=== PATIENT | male | born 1985 | race Caucasian/White ===

== ENCOUNTER 2017-09-15 11:20 | Emergency (ER) | payer OTHER ==
--- NOTE | 2017-09-15 12:06 | CR ---
EXAMINATION: Left hand HISTORY: Crush injury COMPARISON: None TECHNIQUE: 3 views FINDINGS/IMPRESSION: There is a nondisplaced fracture through the middle aspect of the mid fourth pha lanx. The remaining osseous structures and joint spaces are preserved. Mild soft tissue swelling over lying the fourth PIP joint.
--- NOTE | 2017-09-15 12:19 | EDM.PDOC ---
ED HPI GENERAL MEDICAL PROBLEM - General Chief Complaint: Upper Extremity Injury/Pain Stated Complaint: RT HAND RING FINGER Time Seen by Provider: 09/15/17 11:34 Source of Information: Reports: Patient History Limitations: Reports: No Limitations - History of Present Illness INITIAL COMMENTS - FREE TEXT/NARRATIVE: HISTORY AND PHYSICAL: History of present illness: Patient is a 32-year-old male who presents to the emergency room today after a crush injury to the right fourth digit states he was working and smashed it between a Shaker and a pipe, causing pain and swelling. There is no open skin, abrasions or lacerations. Denies any involvement of the other fingers, hand, wrist or forearm. Tdap is up to date Review of systems: As per history of present illness and below otherwise all systems reviewed and negative. Past medical history: As per history of present illness and as reviewed below otherwise noncontributory. Surgical history: As per history of present illness and as reviewed below otherwise noncontributory. Social history: No reported history of drug or alcohol abuse. Family history: As per history of present illness and as reviewed below otherwise noncontributory. Physical exam: General: Well-developed and well-nourished 32-year-old male. Alert and oriented. Nontoxic appearing and in no acute distress. HEENT: Atraumatic, normocephalic, pupils reactive, negative for conjunctival pallor or scleral icterus, mucous membranes moist, throat clear, neck supple, nontender, trachea midline. Lungs: Clear to auscultation, breath sounds equal bilaterally, chest nontender. Heart: S1S2, regular, negative for clicks, rubs, or JVD. Abdomen: Soft, nondistended, nontender. Negative for masses or hepatosplenomegaly. Negative for costovertebral tenderness. Pelvis: Stable nontender. Genitourinary: Deferred. Rectal: Deferred. Extremities/skin: Moves all extremities per self. Has flexion and extension of the right fourth digit. Capillary refill less than 2 seconds of the affected finger. Strong radial pulses bilaterally. Skin is intact with mild soft tissue swelling to the mid finger, 4th digit. Neurovascular unremarkable. Neuro: Awake, alert, oriented. Cranial nerves II through XII unremarkable. Cerebellum unremarkable. Motor and sensory unremarkable throughout. Exam nonfocal. X-ray shows a nondisplaced fracture through the middle aspect of the mid fourth phalanx. A spoon splint that is colleen taped to the adjacent finger is applied. Patient states he goes on days off starting today and lives in [facility]. He will follow up with a surgeon in [place] later this week or early next week. A copy of his radiology image was sent with the patient. Will provide the patient with [place], one tab every 4-6 hours as needed, dispense 30, no refill. We discussed not using this medication when driving or needing to be functioning at work. Patient voices understanding and is agreeable to plan of care. Diagnostics: X-ray Therapeutics: [] Impression: Finger fracture, right 4th digit Plan: 1. You have a non-displaced fracture of the middle aspect of the mid fourth phalanx. Please wear the splint that has been provided for you and "colleen tape it" to the adjacent finger to prevent movement. 2. Please follow-up with a hand surgeon in the next 5-7 days. A copy of your radiology image has been sent with you. The hand surgeon or occupational health will have to return back to work. 3. Ashland 5/325mg has been prescribed for you. You may take 1-2 tabs every 4-6 hours as needed for pain. This is a narcotic and may cause drowsiness, do not take it while driving or needing to be functioning with daily activities. If needed he may take ibuprofen in between for additional pain management. Rest, ice, elevate the extremity. 4. Follow-up with the hand surgeon as we discussed. Return to the ED as needed and as discussed. Definitive disposition and diagnosis as appropriate pending reevaluation and review of above. Onset: Today Duration: Minutes: Location: Reports: Upper Extremity, Right Right Hand Pain Score (Numeric/FACES): 2 - Related Data Allergies Allergy/AdvReac Type Severity Reaction Status Date / Time No Known Allergies Allergy Verified 09/15/17 11:38 Home Meds: Home Meds Dextroamphetamine/Amphetamine [Adderall 20 mg Tablet] 20 mg PO DAILY 09/15/17 [ History] Past Medical History - Past Health History Medical/Surgical History: Denies Medical/Surgical History Psychiatric History: Reports: ADHD - Infectious Disease History Infectious Disease History: Reports: Chicken Pox Social & Family History - Family History Family Medical History: Noncontributory - Tobacco Use Smoking Status *Q: Current Every Day Smoker Years of Tobacco use: 8 Packs/Tins Daily: 1 - Caffeine Use Caffeine Use: Reports: Coffee, Energy Drinks, Soda - Recreational Drug Use Recreational Drug Use: No Review of Systems - Review of Systems Review Of Systems: ROS reveals no pertinent complaints other than HPI. ED EXAM, GENERAL - Physical Exam Exam: See Below (See dictation) Course - Vital Signs Last Recorded V/S: Last Vital Signs Temp 97.6 F 09/15/17 11:34 Pulse 101 H 09/15/17 11:34 Resp 18 09/15/17 11:34 BP 143/78 H 09/15/17 11:34 Pulse Ox 97 09/15/17 11:34 Departure - Departure Time of Disposition: 12:19 Disposition: Home, Self-Care 01 Clinical Impression: Finger fracture, right Qualifiers: Encounter type: initial encounter Finger: ring finger Fracture type: closed Phalanx: middle Fracture alignment: nondisplaced Qualified Code(s): S62.654A - Nondisplaced fracture of medial phalanx of right ring finger, initial encounter for closed fracture - Discharge Information Instructions: Metacarpal Fracture, [id number] Referrals: PCP,None [Primary Care Provider] - Forms: ED Department Discharge Additional Instructions: My general discharge The following information is given to patients seen in the emergency department who are being discharged to home. This information is to outline your options for follow-up care. We provide all patients seen in our emergency department with a follow-up referral. The need for follow-up, as well as the timing and circumstances, are variable depending upon the specifics of your emergency department visit. If you don't have a primary care physician on staff, we will provide you with a referral. We always advise you to contact your personal physician following an emergency department visit to inform them of the circumstance of the visit and for follow-up with them and/or the need for any referrals to a consulting specialist. The emergency department will also refer you to a specialist when appropriate. This referral assures that you have the opportunity for follow-up care with a specialist. All of these measure are taken in an effort to provide you with optimal care, which includes your follow-up. Under all circumstances we always encourage you to contact your private physician who remains a resource for coordinating your care. When calling for follow-up care, please make the office aware that this follow-up is from your recent emergency room visit. If for any reason you are refused follow-up, please contact the [facility] Emergency Department at and asked to speak to the emergency department charge nurse. [facility] Specialty Care - [facility] Professional Building [address] [place] [address], [address] [place] [address] 1. You have a non-displaced fracture of the middle aspect of the mid fourth phalanx. Please wear the splint that has been provided for you and "colleen tape it" to the adjacent finger to prevent movement. 2. Please follow-up with a hand surgeon in the next 5-7 days. A copy of your radiology image has been sent with you. The hand surgeon or occupational health will have to return back to work. 3. Ashland 5/325mg has been prescribed for you. You may take 1-2 tabs every 4-6 hours as needed for pain. This is a narcotic and may cause drowsiness, do not take it while driving or needing to be functioning with daily activities. If needed he may take ibuprofen in between for additional pain management. Rest, ice, elevate the extremity. 4. Follow-up with the hand surgeon as we discussed. Return to the ED as needed and as discussed.
== END 2017-09-15 12:33 | disposition home or self-care (01) ==
LOC: MW.ED 11:20
DX: S62.654A Nondisplaced fracture of middle phalanx of right ring finger, initial encounter for closed fracture (principal); F17.210 Nicotine dependence, cigarettes, uncomplicated; Z79.899 Other long term (current) drug therapy; W23.1XXA Caught, crushed, jammed, or pinched between stationary objects, initial encounter
CPT/HCPCS: 73140-26-F8; 73140-F8; 99283; 99284